=== PATIENT | male | born 1965 | race Caucasian/White ===

== ENCOUNTER → 2017-08-21 | Outpatient (CLI) | payer BC ==
--- NOTE | 2017-08-21 09:19 | XR ---
EXAMINATION TYPE: XR knee complete RT DATE OF EXAM: 08/21/2017 COMPARISON: NONE HISTORY: Pain TECHNIQUE: Four views are submitted. FINDINGS: Mild narrowing the joint spaces. No erosive changes. Osseous structures are intact. No acute fractur e seen. IMPRESSION: 1. No acute fracture or dislocation. 2. Mild arthropathy.
== END ==
LOC: RADXRYALE 08:47
PROVIDERS: ATTEND Family Medicine
DX: M25.561 Pain in right knee (principal)

== ENCOUNTER 2024-10-26 14:40 | Emergency (ER) | payer BC ==
[2024-10-26 14:49] VITALS: TEMP 97.9
[2024-10-26] MEDS: SODIUM CHLORIDE 0.9% 1,000 ML IV STA (15:35)
--- NOTE | 2024-10-26 15:56 | XR ---
2 view chest HISTORY: Cough COMPARISON: None. TECHNIQUE: PA and lateral views chest obtained. FINDINGS: The lungs are clear of consolidative, interstitial or masslike opacity. There is a small to moderate left pleural effusion. There is pleural thickening or small loculated pl eural effusion on the right. The heart, pulmonary vasculature, mediastinum and trang are within normal limits. The osseous structures and soft tissues of the thorax are intact. IMPRESSION: 1. Small to moderate left pleural effusion. 2. Mild pleural thickening or loculated pleural fluid on the right [facility], , 10/26/2024 3:54 PM
[2024-10-26 15:59] LABS: ALT 15 U/L (4-49); AST 28 U/L (17-59); African American GFR (CKD) >90 (>60 ml/min/1.73 sqM); Alkaline Phosphatase 88 U/L (38-126); Anion Gap 5 mmol/L; Blood Urea Nitrogen 17 mg/dL (9-20); Calcium 9.4 mg/dL (8.4-10.2); Carbon Dioxide 24 mmol/L (22-30); Chloride 97 mmol/L (98-107); Glucose 85 mg/dL (74-99); Non-African American GFR(CKD) >90 (>60 ml/min/1.73 sqM); Potassium 4.6 mmol/L (3.5-5.1); Sodium 126 mmol/L (137-145); Total Bilirubin 0.8 mg/dL (0.2-1.3); Total Protein 5.9 g/dL (6.3-8.2)
[2024-10-26 16:01] LABS: Partial Thromboplastin Time 23.6 sec (22.0-30.0); Prothrombin Time 10.6 sec (10.0-12.5)
[2024-10-26 16:05] LABS: NT-Pro-B-Type Natriuretic Pept 320 pg/mL
[2024-10-26 16:19] LABS: HCT 32.8 % (39.0-53.0); MCH 32.2 pg (25.0-35.0); MCHC 33.5 g/dL (31.0-37.0); MCV 96.3 fL (80.0-100.0); Mean Platelet Volume 7.5; Platelet Count 132 k/uL (150-450); RDW 14.1 % (11.5-15.5)
[2024-10-26 16:25] LABS: WBC 255.3 k/uL (3.8-10.6)
[2024-10-26 16:37] VITALS: RESP 20
[2024-10-26 16:43] LABS: Appearance,Urine Clear (Clear); Bilirubin,Urine Negative (Negative); Blood,Urine Negative (Negative); Color,Urine Colorless; Glucose,Urine (UA) Negative (Negative); Ketones,Urine Negative (Negative); Leukocyte Esterase,Urine Negative (Negative); Nitrite,Urine Negative (Negative); Protein,Urine Negative (Negative); Specific Gravity,Urine 1.004 (1.001-1.035); Urobilinogen,Urine <2.0 mg/dL (<2.0)
--- NOTE | 2024-10-26 16:48 | ED ---
General Adult HPI - General Chief complaint: Recheck/Abnormal Lab/Rx Stated complaint: Abnormal Labs Time Seen by Provider: 10/26/24 14:40 Source: patient, RN notes reviewed, old records reviewed Mode of arrival: ambulatory Limitations: no limitations - History of Present Illness Initial comments: Patient is a 59-year-old male who presents emergency department complaining of shortness of breath. Sent from Dr. Abrams's office for abnormal potassium. Has been dealing with a severe leukocytosis for months. Has also been dealing with lower extremity swelling for months as well as worsening exertional dyspnea, orthopnea, PND. Symptoms of all been ongoing for at least 3 months. Was at the oncologist office today at [facility] when they cher blood. Also had a cardiology appointment and was contacted by the oncologist that blood work did show patient had a hyperkalemia of 7.0. Inspector Of Weights And Measures Dr. Abrams evaluated the patient including EKG and then recommended the patient be transferred to our facility for further evaluation for the elevated potassium. He did contact myself and I was in agreement this plan. Patient has no other acute complaints at this time. Denies any fevers, chills, cough.Shortness of breath has been ongoing for a year. Progressively worsened over the last 3 months. Patient has no acute complaints at this time. - Related Data Home Medications Medication Instructions Recorded Confirmed Albuterol Sulfate [Ventolin HFA] 2 puff INHALATION RT-QID PRN 10/26/24 10/26/24 Cyclobenzaprine [Flexeril] 10 mg PO BID PRN 10/26/24 10/26/24 Fluticasone Nasal [place] [Flonase 2 spr EA NOSTRIL BID PRN 10/26/24 10/26/24 Nasal [place]] amLODIPine BESYLATE/BENAZEPRIL 1 tab PO DAILY 10/26/24 10/26/24 [Lotrel 5-20 mg Capsule] tadalafiL [Cialis] 20 mg PO DAILY PRN 10/26/24 10/26/24 Allergies Allergy/AdvReac Type Severity Reaction Status Date / Time No Known Allergies Allergy Verified 10/26/24 16:38 Review of Systems ROS Statement: Those systems with pertinent positive or pertinent negative responses have been documented in the HPI. Review of Systems: CONST: Denies fever EYES: Denies blurry vision ENT: Denies nasal congestion C/V: Denies Chest pain RESP: Endorses chronic shortness of breath GI: Denies abdominal pain : Denies dysuria SKIN: Denies rash. MSK: Denies joint pain. NEURO: Denies headache ROS Other: All systems not noted in ROS Statement are negative. Past Medical History Past Medical History: Hypertension History of Any Multi-Drug Resistant Organisms: None Reported Past Surgical History: No Surgical Hx Reported Past Psychological History: No Psychological Hx Reported Smoking Status: Never smoker Past Alcohol Use History: Daily Past Drug Use History: None Reported General Exam - General Exam Comments Initial Comments: General: Appears in no acute distress. HEAD: Normal with no signs of head trauma. EYES: PERRLA, EOMI, conjunctiva normal, no discharge. ENT: Hearing grossly intact, normal oropharynx. RESPIRATORY: Somewhat reduced breath sounds at the left lung base. No significant hypoxia. No significant increased work of breathing. C/V: Regular rate and rhythm. S1 and S2 auscultated, 2+ pitting edema in bilateral lower extremities, peripheral pulses 2+ and intact throughout ABD: Abd is soft, nontender, nondistended EXT: Normal range of motion, no obvious deformity SKIN: No rashes or lesions observed on exposed skin. NEURO: Alert and oriented x 4. Limitations: no limitations Course Vital Signs 10/26/24 10/26/24 10/26/24 14:43 16:36 16:58 Temperature 97.9 F Pulse Rate 88 94 92 Respiratory 18 20 20 Rate Blood Pressure 135/83 131/82 O2 Sat by Pulse 97 96 96 Oximetry Medical Decision Making - Medical Decision Making Was pt. sent in by a medical professional or institution (, PA, RESEARCH PROGRAM INTERN, urgent care, hospital, or fci...) When possible be specific @ -Sent by display department manager, Dr. Abrams who updated me for the patient's visit today as the patient was a new patient for him as well as the results from the [facility] lab draw for which the patient was contacted at his office. Expressed that his EKG at the office showed no hyperkalemic changes. Did you speak to anyone other than the patient for history (EMS, parent, family, police, friend...)? What history was obtained from this source @ -No Did you review nursing and triage notes (agree or disagree)? Why? @ -I reviewed and agree with nursing and triage notes Were old charts reviewed (outside hosp., previous admission, EMS record, old EKG, old radiological studies, urgent care reports/EKG's, fci records)? Report findings @ -No old charts were reviewed Differential Diagnosis (chest pain, altered mental status, abdominal pain women, abdominal pain men, vaginal bleeding, weakness, fever, dyspnea, syncope, headache, dizziness, GI bleed, back pain, seizure, CVA, palpatations, mental health, musculoskeletal)? @ -Hyperkalemia, hemolyzed specimen, CHF, pneumonia, this list is not all inclusive. EKG interpreted by me (3pts min.). @ -As above X-rays interpreted by me (1pt min.). @ -Chest x-ray reveals left mild to moderate pleural effusion as well as a trace right pleural effusion CT interpreted by me (1pt min.). @ -None done U/S interpreted by me (1pt. min.). @ -None done What testing was considered but not performed or refused? (CT, X-rays, U/S, labs)? Why? @ -None What meds were considered but not given or refused? Why? @ -None Did you discuss the management of the patient with other professionals (professionals i.e. , PA, RESEARCH PROGRAM INTERN, lab, RT, psych nurse, clinical social work aide, tank stave assembler, teacher, customer service officer, case picker)? Give summary @ -No Was smoking cessation discussed for >3mins.? @ -No Was critical care preformed (if so, how long)? @ -No Were there social determinants of health that impacted care today? How? (Homelessness, low income, unemployed, alcoholism, drug addiction, transportation, low edu. Level, literacy, decrease access to med. care, residential, rehab)? @ -No Was there de-escalation of care discussed even if they declined (Discuss DNR or withdrawal of care, Hospice)? DNR status @ -No What co-morbidities impacted this encounter? (DM, HTN, Smoking, COPD, CAD, Cancer, CVA, ARF, Chemo, Hep., AIDS, mental health diagnosis, sleep apnea, morbid obesity)? @ -None Was patient admitted / discharged? Hospital course, mention meds given and route, prescriptions, significant lab abnormalities, going to OR and other pertinent info. @ -Patient presents emergency department for possible hyperkalemia. Vitals within acceptable limits. Was at his display department manager being worked up for possible CHF. Is due to have further testing on Saturday with cardiology. Is also being worked up by oncology for leukocytosis for possible leukemia. The shortness of breath as well as leukocytosis are chronic. White blood cell counts are usually over 200. He was at both offices today, and contacted by the oncologist for an elevated potassium on blood work from that office. Presents for further evaluation after being sent from his display department manager office where he was notified of the results. He has no obvious acute complaints at this time. Has been dealing with chronic shortness of breath. States he does not want to stay at the hospital. He is consenting to obtaining blood work, as well as EKG and chest x-ray. Patient was otherwise in agreement this plan. Laboratory studies are remarkable for a chronic leukocytosis of 255 for which she was receiving outpatient follow-up. Patient has a mild anemia of 11.0 as well as mild thrombocytopenia of 132. Laboratory studies remarkable for hyponatremia of 126. BNP is within normal limits. Chest x-ray shows left-sided pleural effusion as well as a trace right-sided pleural effusion. EKG shows no signs of acute ischemia. On reevaluation, I discussed the results with the patient. He still would like to go home. Patient does not have hypoxia with exertion. I discussed results with him. Does not appear to be acute CHF however he does require further workup for which she does have an echo scheduled on Saturday with cardiology. He is following up closely with oncology for his leukocytosis. The potassium drawn at the outside facility was likely hemolyzed which is why it was elevated. It is currently 4.6 with no evidence of hemolysis and no findings consistent with hyperkalemia on EKG. Patient would like to go home and as he does have close follow-up I believe this is reasonable. Discussed the need to repeat lab draw for the hyponatremia as well. He was in agreement this plan. I instructed the patient to follow up with their PCP in the next 1-3 days. I explained that the patient should return to the emergency department if they experience any worsening symptoms. Strict return precautions were discussed with the patient. The patient expressed understanding of these instructions. I answered all questions that the patient had. The patient was discharged home in fair condition with their prescriptions and follow up information. Undiagnosed new problem with uncertain prognosis? @ -No Drug Therapy requiring intensive monitoring for toxicity (Heparin, Nitro, Insulin, Cardizem)? @ -No Were any procedures done? @ -No Diagnosis/symptom? @ -Leukocytosis of unknown etiology, pleural effusion Acute, or Chronic, or Acute on Chronic? @ -Acute Uncomplicated (without systemic symptoms) or Complicated (systemic symptoms)? @ -Complicated Side effects of treatment? @ -No Exacerbation, Progression, or Severe Exacerbation? @ -No Poses a threat to life or bodily function? How? (Chest pain, [place], ME, pneumonia, PE, COPD, DKA, ARF, appy, cholecystitis, CVA, Diverticulitis, Homicidal, Suicidal, threat to staff... and all critical care pts) @ -Potentially, yes depending on overall diagnosis. Unlikely in the short- term. - Lab Data Result diagrams: 10/26/24 15:32 10/26/24 15:32 Lab Results 10/26/24 10/26/24 10/26/24 Range/Units 15:32 15:32 15:32 WBC 255.3 H* (3.8-10.6) k/uL RBC 3.40 L (4.30-5.90) m/uL Hgb 11.0 L (13.0-17.5) gm/dL Hct 32.8 L (39.0-53.0) % MCV 96.3 (80.0-100.0) fL MCH 32.2 (25.0-35.0) pg MCHC 33.5 (31.0-37.0) g/dL RDW 14.1 (11.5-15.5) % Plt Count 132 L (150-450) k/uL MPV 7.5 PT 10.6 (10.0-12.5) sec INR 1.0 (<1.2) APTT 23.6 (22.0-30.0) sec Sodium 126 L (137-145) mmol/L Potassium 4.6 (3.5-5.1) mmol/L Chloride 97 L (98-107) mmol/L Carbon Dioxide 24 (22-30) mmol/L Anion Gap 5 mmol/L BUN 17 (9-20) mg/dL Creatinine 0.86 (0.66-1.25) mg/dL Est GFR (CKD-EPI)AfAm >90 (>60 ml/min/1.73 sqM) Est GFR (CKD-EPI)NonAf >90 (>60 ml/min/1.73 sqM) Glucose 85 (74-99) mg/dL Calcium 9.4 (8.4-10.2) mg/dL Total Bilirubin 0.8 (0.2-1.3) mg/dL AST 28 (17-59) U/L ALT 15 (4-49) U/L Alkaline Phosphatase 88 (38-126) U/L NT-Pro-B Natriuret Pep 320 pg/mL Total Protein 5.9 L (6.3-8.2) g/dL Albumin 4.0 (3.5-5.0) g/dL Urine Color Urine Appearance (Clear) Urine pH (5.0-8.0) Ur Specific [place] (1.001-1.035) Urine Protein (Negative) Urine Glucose (UA) (Negative) Urine Ketones (Negative) Urine Blood (Negative) Urine Nitrite (Negative) Urine Bilirubin (Negative) Urine Urobilinogen (<2.0) mg/dL Ur Leukocyte Esterase (Negative) 10/26/24 Range/Units 15:32 WBC (3.8-10.6) k/uL RBC (4.30-5.90) m/uL Hgb (13.0-17.5) gm/dL Hct (39.0-53.0) % MCV (80.0-100.0) fL MCH (25.0-35.0) pg MCHC (31.0-37.0) g/dL RDW (11.5-15.5) % Plt Count (150-450) k/uL MPV PT (10.0-12.5) sec INR (<1.2) APTT (22.0-30.0) sec Sodium (137-145) mmol/L Potassium (3.5-5.1) mmol/L Chloride (98-107) mmol/L Carbon Dioxide (22-30) mmol/L Anion Gap mmol/L BUN (9-20) mg/dL Creatinine (0.66-1.25) mg/dL Est GFR (CKD-EPI)AfAm (>60 ml/min/1.73 sqM) Est GFR (CKD-EPI)NonAf (>60 ml/min/1.73 sqM) Glucose (74-99) mg/dL Calcium (8.4-10.2) mg/dL Total Bilirubin (0.2-1.3) mg/dL AST (17-59) U/L ALT (4-49) U/L Alkaline Phosphatase (38-126) U/L NT-Pro-B Natriuret Pep pg/mL Total Protein (6.3-8.2) g/dL Albumin (3.5-5.0) g/dL Urine Color Colorless Urine Appearance Clear (Clear) Urine pH 7.0 (5.0-8.0) Ur Specific [place] 1.004 (1.001-1.035) Urine Protein Negative (Negative) Urine Glucose (UA) Negative (Negative) Urine Ketones Negative (Negative) Urine Blood Negative (Negative) Urine Nitrite Negative (Negative) Urine Bilirubin Negative (Negative) Urine Urobilinogen <2.0 (<2.0) mg/dL Ur Leukocyte Esterase Negative (Negative) - EKG Data -: EKG Interpreted by Me EKG Comments: 12-lead Electrocardiogram Interpretation Note EKG was reviewed and interpreted by myself. 12-lead ECG performed at 1511 is interpreted by me as revealing normal sinus rhythm at a rate of 81 beats per m inute. [place] is normal. NE interval is 143 ms, QRS duration is 93 ms, QTc is 370 ms.. There were no ST or T wave abnormalities to suggest myocardial ischemia or injury. R wave progression across the precordium was satisfactory. By my interpretation this EKG is non-diagnostic for acute ischemia. No obvious evidence of acute hyperkalemia at this time. Disposition Clinical Impression: Leukocytosis, Pleural effusion Disposition: HOME SELF-CARE Condition: Fair Instructions (If sedation given, give patient instructions): Pleural Effusion (DC) Additional Instructions: You Have a small to moderate left-sided pleural effusion as well as some pleural thickening or pleural effusion on the right. You also have mild hyponatremia. You need to have close follow-up with repeat lab draws in the next week with your PCP or another provider. Please follow-up with your display department manager on Saturday for further testing that is already scheduled. Please return to the emergency department if any worsening symptoms. Please follow-up with pulmonology regarding the pleural effusions. Is patient prescribed a controlled substance at d/c from ED?: No Referrals: Nathalia Stroud DO [Primary Care Provider] - 1-2 days Raul Mathew MD [STAFF PHYSICIAN] - 1-2 days Time of Disposition: 16:48
[2024-10-26 17:00] VITALS: BP 131/82; PULSE 92
[2024-10-26 18:22] LABS: Monocytes # (M) 5.11 k/uL (0-1.0); Nucleated Red Blood Cells 0 /100 WBC (0-0)
[2024-10-27 08:26] LABS: Lymphocytes # (M) 242.54 k/uL (1.0-4.8); Neutrophils # (M) 10.21 k/uL (1.3-7.7); Neutrophils % (M) 4 %; Total Cells Counted 200
== END 2024-10-26 17:00 | disposition home or self-care (01) ==
LOC: EC 14:40
DX: J90 Pleural effusion, not elsewhere classified (principal); D72.829 Elevated white blood cell count, unspecified; E87.1 Hypo-osmolality and hyponatremia
CPT/HCPCS: 36415; 71046; 80053; 81003; 83880; 85025; 85610; 85730; 93005; 99284

== ENCOUNTER → 2024-11-23 | Outpatient (CLI) | payer BC ==
--- NOTE | 2024-11-23 23:36 | CT ---
EXAMINATION TYPE: CT brain wo con DATE OF EXAM: 11/23/2024 8:43 AM COMPARISON: None. CLINICAL INDICATION: Male, 59 years old with history of R51 headache, TECHNIQUE: CT of the brain is performed utilizing 3 mm thick sections through the posterior fossa and 3 mm thick sections through the remaining calvarium. Study is performed within 24 hours of arrival to the hospital. Contrast used: mL of , (none if empty) CT DLP: 1079.20 mGycm, Automated exposure control for dose reduction was used. FINDINGS: No abnormal hyperdensity is present to suggest an acute intracranial hemorrhage. No mass lesion is evident. No acute infarcts are evident. Ventricles and sulci are appropriate for the patient age. There is near complete opacification of the maxillary sinuses. There is an air-fluid level left maxil mario sinus. Air-fluid level mucosal thickening within sphenoid sinuses. There is mucosal thickening t hroughout the ethmoid air cells. Minimal mucosal thickening within the right sinus. Mastoid air cells have fluid within their most dependent portions IMPRESSION: 1. No acute intracranial process. Follow up MRI can be performed as clinically indicated. 2. Clinical correlation recommended for pansinusitis. Some mild or early bilateral mastoiditis may be present. [facility], , 11/23/2024 11:34 PM
== END | disposition home or self-care (01) ==
LOC: RADCTMAIN 08:23
PROVIDERS: ATTEND Family Medicine
DX: R51.9 Headache, unspecified (principal)
CPT/HCPCS: 70450

== ENCOUNTER 2024-12-09 10:49 | Day surgery (SDC) | payer BC ==
[~2024-12-09 10:49] MED LIST: SODIUM CHLORIDE 0.9% 250 ML in EMPTY BAG 1 BAG IV PRN; SODIUM CHLORIDE 0.9% 500 ML 500 ML in EMPTY BAG 1 BAG IV PRN
[2024-12-09 11:20] VITALS: RESP 16; TEMP 97.8
[2024-12-09 12:29] VITALS: BP 133/70; PULSE 68
--- NOTE | 2024-12-09 12:35 | XR ---
EXAMINATION TYPE: XR chest 1V portable DATE OF EXAM: 12/09/2024 12:18 PM COMPARISON: 10/26/2024 CLINICAL INDICATION: Male, 59 years old with history of POST THORANCENTESIS ,LEFT; [facility] TECHNIQUE: XR chest 1V portable Frontal view of the chest. FINDINGS: Lungs/Pleura: No evidence of focal consolidation or pneumothorax. Blunting of the costophrenic angles is present with associated atelectasis. Pulmonary vascularity: Unremarkable. Heart/mediastinum: Cardiomediastinal silhouette is unremarkable. Musculoskeletal: No acute osseous pathology. Other findings: None Lines/Tubes: IMPRESSION: Bilateral pleural effusions. [facility], , 12/09/2024 12:33 PM
--- NOTE | 2024-12-09 20:13 | OP ---
OPERATIVE REPORT DATE OF SERVICE : PROCEDURE: Left-sided thoracentesis. PREOPERATIVE DIAGNOSIS: Left pleural effusion. POSTOPERATIVE DIAGNOSIS: Left pleural effusion. ANESTHESIA USED: 2 mL of 1% lidocaine. DESCRIPTION OF PROCEDURE: The patient was brought into the [facility], ultrasound was done prior to the procedure, fluid was localized, and a marking was placed at the level of the 8th intercostal space and tip of the scapula. The patient was placed in a sitting upright position, then the area of the chest below the scapula, the left scapula was prepared in a sterile fashion. Drapes were applied. The area was locally anesthetized with lidocaine, 2 mL of lidocaine used, then the needle was advanced into the pleural space, advanced until the fluid was localized with a needle. Then, a small tiny incision was made, a thoracentesis catheter was used, advanced into the pleural space and as soon as the fluid was obtained, the catheter was advanced over the needle into the pleural space and the needle was pulled out of the pleural space. Freely flowing fluid was removed, roughly 2.1 L were removed from the left pleural space, and the fluid was serosanguineous and lipemic at the same time. Fluid was sent for different diagnostic studies, procedure was well tolerated, chest x-ray postoperatively showed complete clearance of the fluid, and the patient will follow up on outpatient basis. MMODL / IJN: [id number] /
[2024-12-10 03:23] LABS: Glucose, BF Source Pleural Fluid; Glucose, Body Fluid 38 mg/dL; LDH, Body Fluid Source Pleural Fluid; T. Protein, Body Fluid Source Pleural Fluid; Total Protein, Body Fluid 3450 mg/dL
[2024-12-10 03:24] LABS: Amylase, Fluid Source Pleural Fluid; Amylase,Body Fluid 43 U/L; Cholesterol,BF Source Pleural Fluid; Cholesterol,Body Fluid 65 mg/dL
[2024-12-10 04:41] LABS: Appearance,BF Turbid (Clear)
== END 2024-12-09 14:35 | disposition home or self-care (01) ==
LOC: PROCWHC3 10:49
PROVIDERS: ATTEND Internal Medicine
DX: J90 Pleural effusion, not elsewhere classified (principal); C91.10 Chronic lymphocytic leukemia of B-cell type not having achieved remission
CPT/HCPCS: 32554; 71045; 82150; 82465; 82945; 83615; 84157; 87070; 87075; 87102; 87116; 87205; 87206; 88108; 88305; 89050

== ENCOUNTER → 2024-12-09 | Outpatient (CLI) | payer BC ==
--- NOTE | 2024-12-09 11:01 | US ---
EXAMINATION TYPE: US chest DATE OF EXAM: 12/09/2024 COMPARISON: NONE CLINICAL INDICATION: Male, 59 years old with history of J90 PLEURAL EFFUSION, NOT ELSEWHERE CLASSIFIE D; TECHNIQUE: Grayscale imaging of the chest. Targeted ultrasound of the posterior lower left hemithora x FINDINGS: EXAM MEASUREMENTS: Left Pleural Effusion pocket size: 11.8 cm Left skin surface to fluid distance: 2.7 cm Lung tissue visualized: 5.2cm deep in fluid pocket Left side marked for possible thoracentesis outside the dept. Pulmonologists are able to review the images in the patient?s EMR. IMPRESSIONS: Small to moderate left pleural effusion. [facility], , 12/09/2024 10:59 AM
== END | disposition home or self-care (01) ==
LOC: RADUSWWP 10:20
PROVIDERS: ATTEND Internal Medicine
DX: J90 Pleural effusion, not elsewhere classified (principal)
CPT/HCPCS: 76604

== ENCOUNTER → 2025-05-20 | Outpatient (CLI) | payer BC ==
[2025-05-20 09:57] LABS: African American GFR (CKD) 80 (>60 ml/min/1.73 sqM); Blood Urea Nitrogen 21 mg/dL (9-20); Non-African American GFR(CKD) 69 (>60 ml/min/1.73 sqM)
--- NOTE | 2025-05-23 19:44 | CT ---
EXAMINATION TYPE: CT ChestAbdPelvis w con DATE OF EXAM: 05/20/2025 11:22 AM COMPARISON: 12/25/2024 CLINICAL INDICATION: Male, 59 years old with history of C91.10 LEUKEMIA, Cancer recheck TECHNIQUE: CT ChestAbdPelvis w con , with sagittal coronal reformats. If MIP/3-D images were created, there are created on a separate workstation. Contrast used:100 mL of Isovue 300 with IV Contrast, (none if empty) Oral contrast used: with Oral Contrast (none if empty) CT DLP: 2090.1 mGycm, Automated exposure control for dose reduction was used. FINDINGS: CT CHEST: Portion of the thyroid visualized is normal. No suspicious lung nodules or focal infiltrates are present. No enlarged mediastinal or hilar adenopathy is evident. Tiny scattered small mediastinal lymph nodes are present No significant coronary artery calcifications. The ascending aorta diameter at the level of the main pulmonary artery is 3.8 cm. The main pulmonary artery diameter at the bifurcation is 3.[address] ABDOMEN: Lymphadenopathy: There is a 1.1 cm celiac axis lymph node. No retrocrural adenopathy is evident. Mult iple small lymph nodes are in the periaortic and retrocaval region. There is slight increased density in the mid to lower periaortic region with lymphadenopathy measuring up to 0.8 cm. Adjacent to the l eft common iliac artery is irregular 1.3 cm area of increased density. There are a few scattered smal l left inguinal lymph nodes present. Previous aortic matted adenopathy is essentially resolved. Liver: Normal Spleen: Normal Pancreas: Normal Adrenal glands: The adrenal glands are normal. Gallbladder: Normal Kidneys: No masses are evident. No hydronephrosis is present. No cysts are present. Delayed images were obtained through the kidneys, which remain unremarkable. Aorta: Vascular calcification is within the aorta. Inferior vena cava: Normal. CT PELVIS: Loops of bowel within the abdomen and pelvis are normal. There are loops of bowel which are incom pletely distended or lack oral contrast limiting their evaluation. Appendix: Normal as visualized. Urinary bladder: Normal. Genitourinary structures: Prostate is somewhat prominent Osseous structures: No suspicious lytic or sclerotic lesions. IMPRESSION: 1. Significant improvement of previous adenopathy. Some mild residual may remain in the periaortic re gion in the mid to distal aorta level. A few scattered additional small nodes are noted above. [facility], , 05/23/2025 7:42 PM
== END | disposition home or self-care (01) ==
LOC: RADCTMAIN 09:12
PROVIDERS: ATTEND Internal Medicine Hematology & Oncology
DX: C91.10 Chronic lymphocytic leukemia of B-cell type not having achieved remission (principal)
CPT/HCPCS: 82565; 84520; 71260; 74177; 36415; Q9967